=== PATIENT | female | born 2005 | race Caucasian/White ===

== ENCOUNTER 2025-04-30 10:17 | Emergency (ER) | payer OTHER, SELFPAY ==
[2025-04-30 10:38] VITALS: BP 123/81
--- NOTE | 2025-04-30 11:11 | ED.GENMED ---
History of Present Illness
<Dori Barron PA-C - Last Filed: 04/30/25 19:07>
General
Chief Complaint: Fever
Source: patient
Exam Limitations: none
Time Seen by Provider: 04/30/25 10:46
History of Present Illness
History of Present Illness:
Patient is an otherwise healthy 19-year-old female who presents to the emergency department from home accompanied by her father for evaluation of a fever for the past several days. Patient reports that she had a fever when she went to urgent care 2
days ago. She reports that she has had chills, body aches, fatigue. She also reports a loss of appetite but states that she is drinking fluids. Patient reports that she does have an associated frontal headache. She also notes some intermittent
right flank discomfort which is not present currently. Patient denies nasal congestion, rhinorrhea, sore throat. She reports had a mild cough last week which is now resolved. Patient denies chest pain or shortness of breath. Patient denies
nausea, vomiting. Patient denies recent diarrhea or constipation. Patient denies dysuria. Patient reports that her last menstrual period was 5 days ago and she has low suspicion for today. Patient denies any unusual vaginal discharge
or concern for sexually transmitted infection. Patient reports she has been alternating ibuprofen and Tylenol for the fever. She reports the last dose was at Tylenol at midnight. Patient went to urgent care 2 days ago and they did some testing
and told her that she might have a UTI but could not be sure. She reports that they did send a urine culture and she has not received a phone call that it was positive. She reports that they did perform flu and COVID swabs, both of which were
negative. Patient reports that she is currently a student, denies any known sick contacts. Patient denies any recent travel. Patient denies any neck pain or new or unusual rashes.
Past History
<Dori Barron PA-C - Last Filed: 04/30/25 19:07>
Past History
ED Past Medical History: None
ED Past Surgical History: None
Social History
Tobacco: Non-smoker
Alcohol: Occasional
Drug: None
Review of Systems
<Dori Barron PA-C - Last Filed: 04/30/25 19:07>
Review of Systems
Allergies reviewed?: Yes
All Other Systems: ROS reviewed and negative except as documented in HPI and ROS
Constitutional: Reports fever, chills and other (sweats)
EENT: Reports no symptoms; Denies sore throat or runny nose
Respiratory: Reports no symptoms; Denies cough (resolved) or trouble breathing
Cardiac: Reports no symptoms
ABD/GI: Reports other (right flank pain)
: Reports no symptoms; Denies dysuria
Musculoskeletal: Reports no symptoms
Skin: Reports no symptoms
Neurological: Reports no symptoms
Endocrine: Reports no symptoms
Hematologic/Lymphatic: Reports no symptoms
Psychiatric: Reports no symptoms
Phy Exam
<Dori Barron PA-C - Last Filed: 04/30/25 19:07>
General Physical Exam
General Presentation: well appearing and no apparent distress
General Skin: warm and dry
General Habitus: normal
General Mental: alert
General Hydration: appears well hydrated
ENT Exam
ENT Exam: EOMI, pharynx normal, neck supple and normocephalic
Eye Exam
Eye Exam: PERRL, EOMI, cornea clear and conjunctiva normal
Cardiovascular Exam
Cardiovascular Exam: regular rate/rhythm, no edema, no murmur and normal peripheral pulses
Pulmonary Exam
Pulmonary Exam: lungs clear, no respiratory distress, no rales, no crackles, no rhonchi, no stridor, no wheezing and no cough
Gastrointestinal Exam
Gastrointestinal Exam: normal bowel sounds, non tender, soft, no organomegaly, no pulsatile mass, non distended and no cva tenderness
Neurological Exam
Neurological Exam: alert, oriented x3, no motor deficits and speech normal
Musculoskeletal Exam
Musculoskeletal Exam: full ROM and no edema
Skin Exam
Skin Exam: normal color, warm/dry, no rash and no petechia
Psychiatric Exam
Psychiatric Exam: normal mood/affect
Sepsis
<Dori Barron PA-C - Last Filed: 04/30/25 19:07>
Sepsis Screening
Sepsis Assessment: Sepsis Ruled Out
Sepsis Screen
Sepsis Screen: Sepsis Ruled Out
Date: 04/30/25
Time: 19:07
<Julian Tracy PA-C - Last Filed: 05/02/25 12:27>
Sepsis Screen
Sepsis Screen: Sepsis Ruled Out
Date: 05/02/25
Time: 12:26
Course
<Dori Barron PA-C - Last Filed: 04/30/25 19:07>
Orders/Labs/Results
Orders:
Orders
04/30/25 11:09
Acetaminophen [Tylenol] 1,000 mg PO NOW STA
CR Chest - 2 Views Urgent
Comment:
Reason For Exam: fever, mild cough
04/30/25 11:10
0.9% Sodium Chloride 1000 ml [Nss] 1,000 ml IV BOLUS
Test Result ONCE
04/30/25 11:19
COVID-19 Antigen Urgent
Source: Nasal Swab
Complete Blood Count/With Diff Urgent
Comprehensive Metabolic Panel Urgent
HCG, Urine Qualitative Screen Urgent
Date Specimen was Collected: 04/30/25
Time Specimen was Collected: 11:18
Urinalysis Reflex To Culture Urgent
Date Specimen was Collected: 04/30/25
Time Specimen was Collected: 11:18
Urine Microscopic Reflex Cult Urgent
Influenza A+B Rapid Molecular Urgent
KIMMIE Source: Nasal Swab
Specimen Description:
Urine Culture Urgent
KIMMIE Source: U
Specimen Description:
Date Specimen was Collected: 04/30/25
Time Specimen was Collected: 11:18
04/30/25 12:17
Ketorolac [Toradol] 15 mg IV NOW STA
04/30/25 12:54
CT Chest/abd/pel W Iv Cont Urgent
Comment:
Reason For Exam: fever of unknown origin, hematuria, flank pain
04/30/25 15:17
Add On- LAB Urgent
Tests Added?: mono test
04/30/25 15:32
Monotest Urgent
Blood Culture Q30M
KIMMIE Source: Blood/Venous
Specimen Description:
Blood Culture Q30M
KIMMIE Source: Blood/Venous
Specimen Description:
Diphenhydramine [Benadryl] 25 mg IV NOW STA
Metoclopramide [Reglan] 10 mg IV NOW STA
04/30/25 16:57
0.9% Sodium Chloride 1000 ml [Nss] 1,000 ml IV BOLUS
Abnormal Lab Results
04/30/25
11:19
RBC 3.53 L 10^6/uL
(4.20-5.40)
Hgb 10.5 L g/dL
(12.0-16.0)
Hct 30.6 L %
(37.0-47.0)
Absolute Neuts (auto) 7.8 H 10^3/uL
(1.4-6.5)
Absolute Lymphs (auto) 0.3 L 10^3/uL
(1.2-3.4)
Neutrophils % 89.2 H %
(42.2-75.2)
Lymphocytes % 3.0 L %
(20.5-51.1)
Glucose 110 H mg/dl
(70-99)
Ur Occult Blood Reflex 3+ A
(Negative)
Urine RBC 11-15 A /HPF
(0-2)
Urine WBC (Reflex) 30-40 A /HPF
(0-5)
Urine Bacteria (Reflex) Many A
(Negative)
Urine Albumin (Reflex) 1+ A
(Neg - Trace)
04/30/25 11:19
04/30/25 11:19
Vital Signs
Initial and Last Documented VS:
Initial Vital Signs
Temp Pulse Resp BP Pulse Ox
102.8 F H 135 16 123/81 97
04/30/25 10:38 04/30/25 10:38 04/30/25 10:38 04/30/25 10:38 04/30/25 10:38
Last Documented Vital Signs
Temp Pulse Resp BP Pulse Ox
98 F 90 18 89/63 99
04/30/25 14:55 04/30/25 18:35 04/30/25 18:35 04/30/25 18:35 04/30/25 18:35
<Julian Tracy PA-C - Last Filed: 05/02/25 12:27>
Orders/Labs/Results
Orders:
Orders
04/30/25 11:09
Acetaminophen [Tylenol] 1,000 mg PO NOW STA
CR Chest - 2 Views Urgent
Comment:
Reason For Exam: fever, mild cough
04/30/25 11:10
0.9% Sodium Chloride 1000 ml [Nss] 1,000 ml IV BOLUS
Test Result ONCE
04/30/25 11:19
COVID-19 Antigen Urgent
Source: Nasal Swab
Complete Blood Count/With Diff Urgent
Comprehensive Metabolic Panel Urgent
HCG, Urine Qualitative Screen Urgent
Date Specimen was Collected: 04/30/25
Time Specimen was Collected: 11:18
Urinalysis Reflex To Culture Urgent
Date Specimen was Collected: 04/30/25
Time Specimen was Collected: 11:18
Urine Microscopic Reflex Cult Urgent
Influenza A+B Rapid Molecular Urgent
KIMMIE Source: Nasal Swab
Specimen Description:
Urine Culture Urgent
KIMMIE Source: U
Specimen Description:
Date Specimen was Collected: 04/30/25
Time Specimen was Collected: 11:18
04/30/25 12:17
Ketorolac [Toradol] 15 mg IV NOW STA
04/30/25 12:54
CT Chest/abd/pel W Iv Cont Urgent
Comment:
Reason For Exam: fever of unknown origin, hematuria, flank pain
04/30/25 15:17
Add On- LAB Urgent
Tests Added?: mono test
04/30/25 15:32
Monotest Urgent
Blood Culture Q30M
KIMMIE Source: Blood/Venous
Specimen Description:
Blood Culture Q30M
KIMMIE Source: Blood/Venous
Specimen Description:
Diphenhydramine [Benadryl] 25 mg IV NOW STA
Metoclopramide [Reglan] 10 mg IV NOW STA
04/30/25 16:57
0.9% Sodium Chloride 1000 ml [Nss] 1,000 ml IV BOLUS
Abnormal Lab Results
04/30/25
11:19
RBC 3.53 L 10^6/uL
(4.20-5.40)
Hgb 10.5 L g/dL
(12.0-16.0)
Hct 30.6 L %
(37.0-47.0)
Absolute Neuts (auto) 7.8 H 10^3/uL
(1.4-6.5)
Absolute Lymphs (auto) 0.3 L 10^3/uL
(1.2-3.4)
Neutrophils % 89.2 H %
(42.2-75.2)
Lymphocytes % 3.0 L %
(20.5-51.1)
Glucose 110 H mg/dl
(70-99)
Ur Occult Blood Reflex 3+ A
(Negative)
Urine RBC 11-15 A /HPF
(0-2)
Urine WBC (Reflex) 30-40 A /HPF
(0-5)
Urine Bacteria (Reflex) Many A
(Negative)
Urine Albumin (Reflex) 1+ A
(Neg - Trace)
04/30/25 11:19
04/30/25 11:19
Vital Signs
Initial and Last Documented VS:
Initial Vital Signs
Temp Pulse Resp BP Pulse Ox
102.8 F H 135 16 123/81 97
04/30/25 10:38 04/30/25 10:38 04/30/25 10:38 04/30/25 10:38 04/30/25 10:38
Last Documented Vital Signs
Temp Pulse Resp BP Pulse Ox
98 F 90 18 89/63 99
04/30/25 14:55 04/30/25 18:35 04/30/25 18:35 04/30/25 18:35 04/30/25 18:35
<Dori Barron PA-C - Last Filed: 04/30/25 19:07>
*Pulse Oximetry
SaO2: 97
Oxygen Mode of Delivery: Room air
Patient hypoxic: no
*Critical Care Note
Total Time (30-74mins, 75-104mins- exclusive of procedures): Not Applicable
<Dori Barron PA-C - Last Filed: 04/30/25 19:07>
Update Note
Update Note:
Otherwise healthy 19-year-old female presents emergency department for evaluation of fever over the past week. Patient endorses associated chills, body aches, fatigue and headache. Patient reports she had a mild cough last week which is now
resolved. She reports that she has also had some intermittent right flank pain but denies any urinary complaints. On arrival, patient is febrile to 102.8 �F, the remainder of her vital signs are stable. On examination, the patient is
well-appearing, she is in no acute distress, she has normal cardiopulmonary exam, she has a benign abdomen, she has no CVA tenderness, she has no meningismus and has full range of motion of her neck, she has no unusual rashes. Will initiate eval
with labs, urine studies, viral swabs, along with a chest x-ray. Will provide the patient with IV fluids and ketorolac and reassess.
Patient has no leukocytosis but does have a left shift, the remainder of her labs are nonactionable. Urinalysis does demonstrate both RBCs and WBCs but this is a contaminated sample. Patient is negative for influenza and COVID-19. Chest x-ray
demonstrates no acute disease process. Case discussed with ED attending, will obtain CT chest/abdomen/pelvis to evaluate further for source of infection.
CT of the chest/abdomen/pelvis demonstrates no acute abnormality to account for her fever today. Case once again discussed with ED attending, more suspicious for a viral infection at this time. Will draw blood cultures out of an abundance of
caution and monospot. All results were discussed with the patient and her family extensively. Patient reports that she has a persistent headache after IV fluids and ketorolac which she describes as a migraine. Will give a dose of Reglan and
Benadryl and reassess.
On reevaluation, the patient is resting comfortably and her headache is improved. Patient ready for discharge however blood pressure noted to be low at 79/51, suspect side effect of the Reglan and Benadryl. Will give an additional liter of fluids
and reassess.
Patient's blood pressure has improved after IV fluids, MAP is 71. Patient able to ambulate to and from the restroom with a steady gait and without any dizziness or lightheadedness. Patient notes that she has not eaten all day and does not want to
eat the food here as she is a vegetarian. Patient's mother was able to contact the patient's PCP who reported that the patient's blood pressure in their office is typically in the 90 systolic therefore systolic in the high 80s is not far from her
baseline. Patient also is able to see her PCP tomorrow for reevaluation. At this time, I feel that the patient is safe for discharge to home with instructions on continued supportive care measures, outpatient PCP follow-up tomorrow along with
strict return precautions. Plan was discussed with the patient and her parents who expressed understanding and agreed.
<Julian Tracy PA-C - Last Filed: 05/02/25 12:27>
Update Note
Update Note:
Otherwise healthy 19-year-old female presents emergency department for evaluation of fever over the past week. Patient endorses associated chills, body aches, fatigue and headache. Patient reports she had a mild cough last week which is now
resolved. She reports that she has also had some intermittent right flank pain but denies any urinary complaints. On arrival, patient is febrile to 102.8 �F, the remainder of her vital signs are stable. On examination, the patient is
well-appearing, she is in no acute distress, she has normal cardiopulmonary exam, she has a benign abdomen, she has no CVA tenderness, she has no meningismus and has full range of motion of her neck, she has no unusual rashes. Will initiate eval
with labs, urine studies, viral swabs, along with a chest x-ray. Will provide the patient with IV fluids and ketorolac and reassess.
Patient has no leukocytosis but does have a left shift, the remainder of her labs are nonactionable. Urinalysis does demonstrate both RBCs and WBCs but this is a contaminated sample. Patient is negative for influenza and COVID-19. Chest x-ray
demonstrates no acute disease process. Case discussed with ED attending, will obtain CT chest/abdomen/pelvis to evaluate further for source of infection.
CT of the chest/abdomen/pelvis demonstrates no acute abnormality to account for her fever today. Case once again discussed with ED attending, more suspicious for a viral infection at this time. Will draw blood cultures out of an abundance of
caution and monospot. All results were discussed with the patient and her family extensively. Patient reports that she has a persistent headache after IV fluids and ketorolac which she describes as a migraine. Will give a dose of Reglan and
Benadryl and reassess.
On reevaluation, the patient is resting comfortably and her headache is improved. Patient ready for discharge however blood pressure noted to be low at 79/51, suspect side effect of the Reglan and Benadryl. Will give an additional liter of fluids
and reassess.
Patient's blood pressure has improved after IV fluids, MAP is 71. Patient able to ambulate to and from the restroom with a steady gait and without any dizziness or lightheadedness. Patient notes that she has not eaten all day and does not want to
eat the food here as she is a vegetarian. Patient's mother was able to contact the patient's PCP who reported that the patient's blood pressure in their office is typically in the 90 systolic therefore systolic in the high 80s is not far from her
baseline. Patient also is able to see her PCP tomorrow for reevaluation. At this time, I feel that the patient is safe for discharge to home with instructions on continued supportive care measures, outpatient PCP follow-up tomorrow along with
strict return precautions. Plan was discussed with the patient and her parents who expressed understanding and agreed.
UPDATE: May 02 12:26 PM: Urine culture shows presumptive E. coli. Spoke with patient on the telephone. She had in the interim seen the family doctor and saw the urine culture result and started on Cipro. Sensitivities pending
ED Attending Note
<Dori Barron PA-C - Last Filed: 04/30/25 19:07>
-
Portions of this chart may have been created with voice recognition software.� Occasional wrong word or��sound alike� substitutions may have occurred due to the inherent limitations of voice recognition software.
Discharge Plan
Departure
Patient Disposition: Home (Routine Discharge)
Date of Disposition: 04/30/25
Time of Disposition: 18:59
Patient with high blood pressure during this ER visit?: No
Condition: Good
Covid-19: Negative COVID-19
Discharge Problem:
Fever
Instructions: Fever, Adult (DC), Viral Syndrome (DC)
Referrals:
Cesia Crocker CRNP [Family Provider, Internal Medicine] - Follow up in 2-3 days
Stand Alone Forms: Back to School
Activity Restrictions/Additional Instructions:
You were seen in the emergency department for evaluation of a fever. While you were in the emergency department you were tested for influenza and COVID, these tests were negative. Your blood work and urinalysis did not show any dangerous
abnormalities. You had a CT scan of your chest, abdomen, pelvis which also did not show an abnormality to account for your recent fever. We suspect that you may have a viral infection. We recommend you try to get plenty of rest and drink plenty
of fluids. You may take ibuprofen or Tylenol if needed. Please follow-up with your primary care provider in 2 to 3 days to ensure improvement in your symptoms. Please return to the emergency department if you develop severe headache, vision
changes, neck stiffness, chest pain, shortness of breath or difficulty breathing, severe abdominal pain, persistent vomiting, unusual rash, or for any other worsening or concerning symptoms.
Interventions
Interventions:
*Risk Screen - Suicide Last Done: 04/30/25 10:38
*Neglect/Abuse Screening Last Done: 04/30/25 10:38
*ED- Fall Risk Assessment Last Done: 04/30/25 12:30
*Nursing Disposition Last Done: 04/30/25 19:15
ED- Neurological Assessment Last Done: 04/30/25 11:30
ED-Skin Assessment Last Done: 04/30/25 11:30
Discharge Date and Time
Discharge Date/Time: 04/30/25 19:16
Print Language: NIGERIAN
[2025-04-30] MEDS: TYLENOL 1000 MG PO (11:24)
[2025-04-30] MEDS: NSS 1000 IV ×2 (11:24→16:58)
[2025-04-30 11:36] VITALS: BP 102/67
[2025-04-30 11:41] LABS: Hematocrit 30.6 % (37.0-47.0); Hemoglobin 10.5 g/dL (12.0-16.0); Mean Corp Hgb Conc. 34.3 g/dL (33.0-37.0); Mean Corpuscular Volume 86.7 fL (81.0-99.0); Nucleated Red Blood Cells % 0 %; Platelet Count 163 10^3/uL (130-400); Red Cell Dist. Width 13.5 % (11.5-14.5)
[2025-04-30 11:50] LABS: COVID-19 Antigen Negative (Negative); Urine Character Slightly Cloudy (Clear)
[2025-04-30 11:58] LABS: ALT (SGPT) < 10 U/L (0-35); AST (SGOT) 19 U/L (14-36); Albumin 4.4 g/dl (3.5-5.0); Alkaline Phosphatase 44 U/L (38-126); Blood Urea Nitrogen 12 mg/dl (7-17); Calcium 9.1 mg/dl (8.4-10.2); Carbon Dioxide 24 mmol/L (22-30); Chloride 106 mmol/L (98-107); Glucose 110 mg/dl (70-99); HCG, Urine Qualitative Screen Negative; Potassium 3.6 mmol/L (3.5-5.1); Sodium 137 mmol/L (135-145); Total Protein 7.2 g/dl (6.3-8.2); eGFR > 60.00
[2025-04-30] MEDS: TORADOL 15 MG IV (12:19)
[2025-04-30 12:20] LABS: Urine Squamous Cell >30 /LPF (Few)
[2025-04-30 12:27] LABS: Urine White Cell 30-40 /HPF (0-5)
[2025-04-30 13:34] VITALS: BP 95/68
[2025-04-30] MEDS: REGLAN 10 MG IV (15:39)
[2025-04-30] MEDS: BENADRYL 25 MG IV (15:39)
[2025-04-30 16:52] VITALS: BP 79/51
[2025-04-30 18:35] VITALS: BP 89/63
== END 2025-04-30 19:16 | disposition home or self-care (01) ==
LOC: EMR 10:17
PROVIDERS: Physician Assistant Medical; EMERGENCY PHYSICIAN Emergency Medicine
DX: R50.9 Fever, unspecified (principal)
CPT/HCPCS: 99284; 96374; 96375; 96361; 71046; 71260; 74177; 80053; 81003; 81015; 81025; 85025; 86308; 87040; 87077; 87086; 87186; 87502; 87811; Q9967